=== PATIENT | female | born 1965 | race Caucasian/White ===

== ENCOUNTER → 2017-01-07 | Outpatient (CLI) | payer BC ==
[~2017-01-07] VITALS: Ht 158.8 cm; Wt 108.9 kg
[~2017-01-07] MED LIST: CHLORTHALIDONE25 MG PO; DIAZEPAM5 MG PO; HYDROCODON-ACE1 EAC7 PO; IBUPROFEN800 MG PO; LISINOPRIL20 MG PO; NAPROSYN500 MG PO; NOHOMEMEDS; PERCOCET 5/31 TABLET PO; PHENERGAN-CODE120 ML PO; ZYRTEC5 MG PO
== END | disposition home or self-care (01) ==
LOC: AMB 12:16
PROC: 0DJ08ZZ Inspection of Upper Intestinal Tract, Via Natural or Artificial Opening Endoscopic (ICD-10-PCS; principal; 2017-01-07)
DX: K21.9 Gastro-esophageal reflux disease without esophagitis (principal); K29.70 Gastritis, unspecified, without bleeding; E66.01 Morbid (severe) obesity due to excess calories; Z68.41 Body mass index [BMI] 40.0-44.9, adult; I10 Essential (primary) hypertension; Z82.49 Family history of ischemic heart disease and other diseases of the circulatory system; Z83.49 Family history of other endocrine, nutritional and metabolic diseases; Z83.3 Family history of diabetes mellitus; Z80.9 Family history of malignant neoplasm, unspecified; Z88.8 Allergy status to other drugs, medicaments and biological substances

== ENCOUNTER 2017-02-05 10:04 | Inpatient (IN) | payer BC ==
[~2017-02-05] VITALS: Ht 160 cm; Wt 110.2 kg
[~2017-02-05 10:04] MED LIST changes: +AUGMENTIN875 MG PO
[2017-02-12 06:01] VITALS: BP 145/77
[2017-02-12 10:40] VITALS: BP 155/82
[2017-02-12 19:48] VITALS: BP 158/71
[2017-02-12 23:30] VITALS: BP 123/87
[2017-02-12 23:33] LABS: POINT-OF-CARE METER ID UU14162508
[2017-02-12 23:50] VITALS: BP 129/77
[2017-02-13 03:48] VITALS: BP 128/57
[2017-02-13 05:38] LABS: POINT-OF-CARE METER ID UU14162508
[2017-02-13 07:33] VITALS: BP 169/79
[2017-02-13] MEDS ORDERED: HYDROCODON-ACE1 EAC7 PO (07:44)
[2017-02-13 09:01] LABS: HEMATOCRIT 34.7 % (36.0-46.0); MCH 20.4 PG (29.0-34.0); MCHC 29.1 G/DL (30.0-36.0); MEAN PLAT.VOLUME 8.6 uM^3 (9.5-12.4); PLATELET COUNT 393 K/uL (156-360); RBC DIS.WIDTH-CV 19.7 % (11.8-14.6); RBC DIS.WIDTH-SD 48.7 % (39-53); RED BLOOD COUNT 4.96 M/uL (3.80-5.20)
[2017-02-13 09:05] LABS: WHITE BLOOD COUNT 15.4 K/uL (4.1-10.2)
[2017-02-13 09:21] LABS: ANION GAP 8 MEQ/L (2-14); CHLORIDE 103 MEQ/L (99-109); GFR ESTIMATE (CALCULATED) > 59 mL/min/; GLUCOSE 119 mg/dL (70-99); MAGNESIUM 1.8 mg/dl (1.3-2.7); POTASSIUM 4.7 MEQ/L (3.7-5.4); SAMPLE HEMOLYSIS CHECK 0; SAMPLE ICTERIC CHECK 0; SAMPLE LIPEMIA CHECK 0; SODIUM 133 MEQ/L (136-147); UREA NITROGEN (BUN) 10 mg/dL (9-23)
[2017-02-13 11:57] VITALS: BP 187/85
[2017-02-13 12:04] LABS: POINT-OF-CARE METER ID UU14162508
[2017-02-13 16:08] VITALS: BP 160/74
[2017-02-13 18:54] LABS: POINT-OF-CARE METER ID UU14162508
[2017-02-13 20:45] VITALS: BP 150/68
[2017-02-13 23:36] VITALS: BP 125/64
[2017-02-14 00:05] LABS: POINT-OF-CARE METER ID UU14162508
[2017-02-14 04:21] VITALS: BP 126/66
[2017-02-14 06:06] LABS: POINT-OF-CARE METER ID UU14162508
[2017-02-14 07:22] LABS: HEMATOCRIT 34.8 % (36.0-46.0); MCHC 28.4 G/DL (30.0-36.0); MCV 70.4 FL (83-99); MEAN PLAT.VOLUME 8.5 uM^3 (9.5-12.4); PLATELET COUNT 361 K/uL (156-360); RBC DIS.WIDTH-CV 19.8 % (11.8-14.6); RBC DIS.WIDTH-SD 49.4 % (39-53); RED BLOOD COUNT 4.94 M/uL (3.80-5.20); WHITE BLOOD COUNT 12.4 K/uL (4.1-10.2)
[2017-02-14 07:36] LABS: ANION GAP 5 MEQ/L (2-14); CHLORIDE 106 MEQ/L (99-109); GFR ESTIMATE (CALCULATED) > 59 mL/min/; POTASSIUM 4.7 MEQ/L (3.7-5.4); SAMPLE HEMOLYSIS CHECK 0; SAMPLE ICTERIC CHECK 0; SAMPLE LIPEMIA CHECK 0; SODIUM 138 MEQ/L (136-147); UREA NITROGEN (BUN) 14 mg/dL (9-23)
[2017-02-14 07:37] LABS: GLUCOSE 85 mg/dL (70-99); MAGNESIUM 2.1 mg/dl (1.3-2.7)
[2017-02-14 07:50] VITALS: BP 156/77
== END 2017-02-14 11:29 | disposition home or self-care (01) | DRG 621 ==
LOC: 2SOUTH 10:04 → 2EASTP 02-12 11:07 → 2SOUTH 02-12 12:02 → 2EASTP 02-14 11:29
PROVIDERS: Surgery
PROC: 0DB64Z3 Excision of Stomach, Percutaneous Endoscopic Approach, Vertical (ICD-10-PCS; principal; 2017-02-12)
DX: E66.01 Morbid (severe) obesity due to excess calories (principal); I10 Essential (primary) hypertension; K21.9 Gastro-esophageal reflux disease without esophagitis; Z68.41 Body mass index [BMI] 40.0-44.9, adult
CPT/HCPCS: 80048; 82948; 83735; 84100; 85027; C9113; J0131; J0330; J0360; J0690; J1100; J1170; J1644; J1650; J1815; J1885; J2250; J2405; J2710; J2765; J3480; J7120; Q0169; S0020